=== PATIENT | male | born 1980 ===

== ENCOUNTER 2017-04-23 11:08 | Day surgery (SDC) | payer MEDICARE, OTHER ==
[2017-04-23] MEDS ORDERED: PROPOFOL 200 MG/20 ML BOTTLE IV ONE (11:09)
[2017-04-23] MEDS ORDERED: DEXAMETHASONE SOD PHOSPHATE 10 MG INJ IV ONE (11:09)
[2017-04-23] MEDS ORDERED: ONDANSETRON 4 MG/2 ML VIAL IV ONE (11:09)
[2017-04-23] MEDS ORDERED: LIDOCAINE HCL 2% 5 ML JELLY MC ONE (11:09)
[2017-04-23] MEDS ORDERED: SEVOFLURANE 250 ML BOTTLE IH ONE (11:09)
[2017-04-23] MEDS ORDERED: CEFAZOLIN 1 G VIAL IV ONE (11:09)
[2017-04-23] MEDS ORDERED: HYDROMORPHONE 2 MG/1 ML DISP.SYRIN ONE (11:48)
[2017-04-23] MEDS ORDERED: MIDAZOLAM HCL 2 MG/2 ML VIAL ONE (11:48)
[2017-04-23] MEDS ORDERED: ROCURONIUM BROMIDE 50 MG/5 ML VIAL ONE (11:49)
[2017-04-23] MEDS ORDERED: LIDOCAINE HCL 1% 20 ML VIAL ONE (11:53)
[2017-04-23] MEDS ORDERED: BUPIVACAINE/EPI PF 0.25% 30 ML VIAL ONE (11:53)
[2017-04-23] MEDS ORDERED: POLYMYXIN B SULFATE 500,000 UNITS, BACITRACIN 50,000 UNITS, NORMAL SALINE 20 ML MC ONE ×3 (12:00)
[2017-04-23] MEDS ORDERED: ONDANSETRON 4 MG/2 ML VIAL IV PRN (14:30)
[2017-04-23] MEDS ORDERED: HYDROCODONE/APAP 5-325MG TABLET PO PRN (14:30)
[2017-04-23] MEDS ORDERED: HYDROMORPHONE 1 MG/1 ML DISP.SYRIN IV PRN (14:30)
[2017-04-23] MEDS ORDERED: KETOROLAC TROMETHAMINE 60 MG INJ IM ONE (14:50)
[2017-04-23] MEDS ORDERED: ONDANSETRON 4 MG/2 ML VIAL ONE (15:26)
[2017-04-23] MEDS ORDERED: HYDROMORPHONE 1 MG/1 ML DISP.SYRIN ONE (15:26)
[2017-04-23] MEDS ORDERED: HYDROCODONE/APAP 5-325MG TABLET ONE (16:06)
[2017-04-24] MEDS ORDERED: PANTOPRAZOLE SODIUM 40 MG TABLET.DR PO SCH (09:00)
== END 2017-04-23 16:38 | disposition home or self-care (01) ==
LOC: DS 11:08
PROVIDERS: ATTEND Surgery
DX: K40.90 Unilateral inguinal hernia, without obstruction or gangrene, not specified as recurrent (principal)
CPT/HCPCS: 49505; A4649; A4663; C1781; J0690; J1100; J1170 ×2; J1885; J2250; J2405 ×2; J3490 ×6; J7120